=== PATIENT | male | born 1955 | race Caucasian/White ===

== ENCOUNTER 2020-08-16 07:50 | Outpatient (REF) | payer OTHER, SELFPAY ==
[2020-08-16 11:40] LABS: Hematocrit 45.8 % (42-52); Mean Corpuscular HGB Conc 32.8 g/dl (31.0-36.0); Mean Corpuscular Hemoglobin 28.4 pg (27.0-33.0); Mean Corpuscular Volume 86.7 fL (80-98); Mean Platelet Volume 9.2 fL (9.4-12.4); Platelet Count 222 X10*3/uL (160-400); Red Blood Count 5.28 X10*6/uL (4.60-5.80); Red Cell Distribution Width 12.8 % (11.0-16.0); White Blood Count 5.9 X10*3/uL (4.8-10.8)
[2020-08-16 12:11] LABS: Alanine Aminotransferase 26 U/L (0-40); Albumin Level 4.3 g/dL (3.5-5.0); Alkaline Phosphatase 51 U/L (39-117); Anion Gap 12 (12-20); Aspartate Amino Transferase 20 U/L (5-37); Bilirubin Total 0.8 mg/dL (0.0-1.0); Blood Urea Nitrogen 21 mg/dL (9-16); Calcium 8.9 mg/dL (8.4-10.2); Carbon Dioxide 29 mmol/L (22-29); Chloride 103 mmol/L (96-108); Cholesterol 170 mg/dL; Estimated Glomerular Filt Rate > 60; Glucose Fasting 95 mg/dL (60-99); HDL Cholesterol 65 mg/dL; LDL Cholesterol Calculated 88 mg/dl; Potassium 4.1 mmol/l (3.3-5.1); Sodium 140 mmol/L (135-145); Total Protein 7.2 g/dL (6.5-8.0); Triglycerides 85 mg/dL
[2020-08-16 12:14] LABS: Prostate Specific Antigen 0.19 ng/mL (<0.05-4.0); Vitamin D 25-OH Total 30.2 ng/mL (>30)
== END 2020-08-16 07:51 | disposition home or self-care (01) ==
LOC: HO.MANLDS 07:50
PROVIDERS: PCP Internal Medicine; Visit Provider Internal Medicine
DX: Z12.5 Encounter for screening for malignant neoplasm of prostate (principal); I10 Essential (primary) hypertension
CPT/HCPCS: 36415; 80053; 80061; 82306; 84153; 85027

== ENCOUNTER 2021-11-28 07:46 | Outpatient (REF) | payer OTHER, SELFPAY ==
[2021-11-28 11:12] LABS: Hematocrit 46.3 % (42.0-52.0); Hemoglobin 15.3 g/dl (14.0-18.0); Mean Corpuscular Hemoglobin 28.7 pg (27.0-33.0); Mean Corpuscular Volume 86.7 fL (80.0-98.0); Mean Platelet Volume 9.3 fL (9.4-12.4); Platelet Count 214 X10*3/uL (160-400); Red Blood Count 5.34 X10*6/uL (4.60-5.80); Red Cell Distribution Width 12.5 % (11.0-16.0); White Blood Count 6.8 X10*3/uL (4.8-10.8)
[2021-11-28 11:29] LABS: Alanine Aminotransferase 31 U/L (0-40); Albumin Level 4.4 g/dL (3.5-5.0); Alkaline Phosphatase 51 U/L (39-117); Anion Gap 12 (12-20); Aspartate Amino Transferase 22 U/L (5-37); Bilirubin Total 0.9 mg/dL (0.0-1.0); Blood Urea Nitrogen 23 mg/dL (9-16); Calcium 9.4 mg/dL (8.4-10.2); Carbon Dioxide 31 mmol/L (22-29); Chloride 103 mmol/L (96-108); Cholesterol 182 mg/dL; Estimated Glomerular Filt Rate > 60; Glucose Fasting 96 mg/dL (60-99); HDL Cholesterol 66 mg/dL; LDL Cholesterol Calculated 94 mg/dl; Potassium 4.3 mmol/L (3.3-5.1); Sodium 142 mmol/L (135-145); Total Protein 7.4 g/dL (6.5-8.0); Triglycerides 110 mg/dL
[2021-11-28 11:41] LABS: Prostate Specific Antigen 0.37 ng/mL (<0.05-4.0); Vitamin D 25-OH Total 39.1 ng/mL (>30)
== END 2021-11-28 07:47 | disposition home or self-care (01) ==
LOC: HO.MANLDS 07:46
PROVIDERS: PCP Internal Medicine; Visit Provider Internal Medicine
DX: Z12.5 Encounter for screening for malignant neoplasm of prostate (principal); I10 Essential (primary) hypertension
CPT/HCPCS: 36415; 80053; 80061; 82306; 84153; 85027

== ENCOUNTER 2022-03-10 14:52 | Outpatient (REF) | payer OTHER, SELFPAY ==
[2022-03-10 19:21] LABS: MANUAL DIFF FLAG NO
[2022-03-10 19:24] LABS: Basophils Percent Auto 0.6 % (0-2); Eosinophils Absolute Auto 0.1 X10*3/uL (0.0-0.4); Eosinophils Percent Auto 2.3 % (0-4); Hematocrit 41.2 % (42.0-52.0); Hemoglobin 13.3 g/dl (14.0-18.0); Imm Gran Abs Auto 0.01 X10*3/uL (0.00-0.03); Imm Gran Pct Auto 0.2 % (0.0-0.4); Lymphocytes Absolute Auto 2.3 X10*3/uL (1.2-4.9); Mean Corpuscular HGB Conc 32.3 g/dl (31.0-36.0); Mean Corpuscular Hemoglobin 28.7 pg (27.0-33.0); Mean Corpuscular Volume 88.8 fL (80.0-98.0); Mean Platelet Volume 9.6 fL (9.4-12.4); Monocytes Absolute Auto 0.7 X10*3/uL (0.1-1.2); Monocytes Percent Auto 13.8 % (2-11); Neutrophils Absolute Auto 2.1 x10*3/uL (2.0-8.3); Neutrophils Percent Auto 40.1 % (45-73); Platelet Count 211 X10*3/uL (160-400); Red Blood Count 4.64 X10*6/uL (4.60-5.80); Red Cell Distribution Width 13.3 % (11.0-16.0); White Blood Count 5.3 X10*3/uL (4.8-10.8)
[2022-03-10 19:35] LABS: Alanine Aminotransferase 26 U/L (0-40); Albumin Level 4.3 g/dL (3.5-5.0); Alkaline Phosphatase 45 U/L (39-117); Anion Gap 13 (12-20); Aspartate Amino Transferase 23 U/L (5-37); Bilirubin Total 0.8 mg/dL (0.0-1.0); Blood Urea Nitrogen 24 mg/dL (9-16); Calcium 9.3 mg/dL (8.4-10.2); Carbon Dioxide 29 mmol/L (22-29); Chloride 104 mmol/L (96-108); Estimated Glomerular Filt Rate > 60; Glucose Random 105 mg/dL (60-115); Potassium 4.7 mmol/L (3.3-5.1); Sodium 141 mmol/L (135-145); Total Protein 7.1 g/dL (6.5-8.0)
[2022-03-11 06:51] LABS: Estimated Average Glucose 108 mg/dL; Hemoglobin A1c % 5.4 %
[2022-03-13 08:15] LABS: ~HepC Num1 0.11 S/CO (0.00-0.79); ~Hepatitis C Antibody Nonreactive (Nonreactive)
== END 2022-03-10 14:53 | disposition home or self-care (01) ==
LOC: HO.MANLDS 14:52
PROVIDERS: Visit Provider Internal Medicine
DX: Z11.59 Encounter for screening for other viral diseases (principal); I10 Essential (primary) hypertension; R73.09 Other abnormal glucose
CPT/HCPCS: 36415; 80053; 83036; 85025; 86803

== ENCOUNTER 2023-01-26 07:34 | Outpatient (REF) | payer MEDICARE, SELFPAY ==
[2023-01-26 11:45] LABS: Estimated Average Glucose 114 mg/dL; Hemoglobin A1c % 5.6 %
[2023-01-26 12:12] LABS: Alanine Aminotransferase 41 U/L (0-40); Albumin Level 4.3 g/dL (3.5-5.0); Alkaline Phosphatase 44 U/L (39-117); Anion Gap 10 (12-20); Aspartate Amino Transferase 27 U/L (5-37); Bilirubin Total 1.1 mg/dL (0.0-1.0); Blood Urea Nitrogen 17 mg/dL (9-16); Calcium 9.2 mg/dL (8.4-10.2); Carbon Dioxide 29 mmol/L (22-29); Chloride 106 mmol/L (96-108); Cholesterol 177 mg/dL; Estimated Glomerular Filt Rate > 60; Glucose Random 91 mg/dL (60-115); HDL Cholesterol 68 mg/dL; LDL Cholesterol Calculated 92 mg/dl; Potassium 4.3 mmol/L (3.3-5.1); Sodium 141 mmol/L (135-145); Triglycerides 89 mg/dL
== END 2023-01-26 07:35 | disposition home or self-care (01) ==
LOC: HO.MANLDS 07:34
PROVIDERS: Visit Provider Internal Medicine
DX: Z12.5 Encounter for screening for malignant neoplasm of prostate (principal); N40.1 Benign prostatic hyperplasia with lower urinary tract symptoms; R73.9 Hyperglycemia, unspecified; E78.00 Pure hypercholesterolemia, unspecified
CPT/HCPCS: 36415; 80053; 80061; 83036; 84153

== ENCOUNTER 2024-02-01 07:54 | Outpatient (REF) | payer MEDICARE, SELFPAY ==
[2024-02-01 14:13] LABS: Alanine Aminotransferase 54 U/L (0-40); Albumin Level 4.2 g/dL (3.5-5.0); Alkaline Phosphatase 45 U/L (39-117); Anion Gap 15 (12-20); Aspartate Amino Transferase 30 U/L (5-37); Bilirubin Total 0.8 mg/dL (0.0-1.0); Blood Urea Nitrogen 13 mg/dL (9-16); Calcium 9.1 mg/dL (8.4-10.2); Carbon Dioxide 26 mmol/L (22-29); Chloride 106 mmol/L (96-108); Cholesterol 172 mg/dL (<200); Estimated Glomerular Filt Rate > 60; Glucose Random 91 mg/dL (60-115); HDL Cholesterol 72 mg/dL (>40); LDL Cholesterol Calculated 80 mg/dL (<100); Sodium 143 mmol/L (135-145); Total Protein 7.3 g/dL (6.5-8.0); Triglycerides 101 mg/dL (<150)
[2024-02-01 14:18] LABS: Vitamin D 25-OH Total 63.4 ng/mL (>30)
== END 2024-02-01 07:55 | disposition home or self-care (01) ==
LOC: HO.MANLDS 07:54
PROVIDERS: Visit Provider Internal Medicine
DX: Z12.5 Encounter for screening for malignant neoplasm of prostate (principal); E78.00 Pure hypercholesterolemia, unspecified; I10 Essential (primary) hypertension
CPT/HCPCS: 36415; 80053; 80061; 82306; 84153

== ENCOUNTER 2024-11-11 07:25 | Outpatient (REF) | payer MEDICARE, SELFPAY ==
--- OUTSIDE RECORDS SUMMARY | 2024-11-11 07:29 | XMS_ITS | Continuity of Care Document ---
Author Name [facility] Organization [facility] Care Team Providers Care Fermentation Manager Name Role Phone [facility] Unavailable Unavailable Immunizations Combined list of available immunizations from the Department of Defense and Veterans Affairs facilities. Immunization Series Date Given Administered By Site Reaction Lot Number CVX Code Drug Rig Site Engineer Status Comments Source COVID-19 (PFIZER), MRNA, LNP-S, PF, 30 MCG/0.3 ML DOSE 2 2020 208 complet ed PFR; [id number]; 1 [facility] COVID-19 (PFIZER), MRNA, LNP-S, PF, 30 MCG/0.3 ML DOSE 1 2020 208 complet ed PFR; [id number]; 1 [facility] Social History Combined list of available smoking, tobacco, and other social history from Department of Defense and Veterans Affairs facilities. Social History Type Response Date Comment Sourc e Tobacco smoking status NHIS NON-TOBACCO USER 09/05/2001 [facility]
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
[2024-11-11 13:29] LABS: MANUAL DIFF FLAG NO
[2024-11-11 13:38] LABS: Basophils Percent Auto 0.6 % (0-2); Eosinophils Absolute Auto 0.1 X10*3/uL (0.0-0.4); Eosinophils Percent Auto 1.6 % (0-4); Hematocrit 44.2 % (42.0-52.0); Hemoglobin 14.8 g/dl (14.0-18.0); Imm Gran Abs Auto 0.01 X10*3/uL (0.00-0.03); Imm Gran Pct Auto 0.2 % (0.0-0.4); Lymphocytes Absolute Auto 2.7 X10*3/uL (1.2-4.9); Lymphocytes Percent Auto 42.9 % (20-40); Mean Corpuscular HGB Conc 33.5 g/dl (31.0-36.0); Mean Corpuscular Hemoglobin 29.1 pg (27.0-33.0); Mean Corpuscular Volume 86.8 fL (80.0-98.0); Mean Platelet Volume 9.5 fL (9.4-12.4); Monocytes Absolute Auto 0.8 X10*3/uL (0.1-1.2); Monocytes Percent Auto 12.2 % (2-11); Neutrophils Absolute Auto 2.7 x10*3/uL (2.0-8.3); Neutrophils Percent Auto 42.5 % (45-73); Platelet Count 210 X10*3/uL (160-400); Red Blood Count 5.09 X10*6/uL (4.60-5.80); Red Cell Distribution Width 12.6 % (11.0-16.0); White Blood Count 6.3 X10*3/uL (4.8-10.8)
[2024-11-11 13:44] LABS: Estimated Average Glucose 120 mg/dL; Hemoglobin A1c % 5.8 % (<6.0)
[2024-11-11 14:12] LABS: Prostate Specific Antigen 0.24 ng/mL (<0.05-4.0)
[2024-11-11 14:16] LABS: Alanine Aminotransferase 60 U/L (0-40); Albumin Level 4.1 g/dL (3.5-5.0); Alkaline Phosphatase 55 U/L (39-117); Anion Gap 13 (12-20); Aspartate Amino Transferase 31 U/L (5-37); Bilirubin Total 0.9 mg/dL (0.0-1.0); Blood Urea Nitrogen 21 mg/dL (9-16); Carbon Dioxide 28 mmol/L (22-29); Chloride 107 mmol/L (96-108); Cholesterol 173 mg/dL (<200); Estimated Glomerular Filt Rate > 60; Glucose Random 89 mg/dL (60-115); HDL Cholesterol 62 mg/dL (>40); LDL Cholesterol Calculated 89 mg/dL (<100); Potassium 4.5 mmol/L (3.3-5.1); Sodium 143 mmol/L (135-145); Total Protein 7.3 g/dL (6.5-8.0); Triglycerides 113 mg/dL (<150)
== END 2024-11-11 07:26 | disposition home or self-care (01) ==
LOC: HO.MANLDS 07:25
PROVIDERS: Visit Provider Internal Medicine
DX: E78.00 Pure hypercholesterolemia, unspecified (principal); R73.9 Hyperglycemia, unspecified; Z12.5 Encounter for screening for malignant neoplasm of prostate
CPT/HCPCS: 36415; 80053; 80061; 83036; 84153; 85025

== ENCOUNTER 2025-09-02 09:23 | Outpatient (REF) | payer MEDICARE, OTHER, SELFPAY ==
--- OUTSIDE RECORDS SUMMARY | 2024-11-20 13:32 | XMS_ITS | Encounter Summary ---
Author Organization [facility] Address [address] [place] [address] Phone Care Team Providers Care Fire Battalion Chief Name Role Phone TaeSyed reyes Blanca ZAMARRIPA Primary Care Provider [phone] Encounter Details Date Type Department Care Team (Late st Contact Info) Description 11/20/2024 1:32 PM [facility] Hospital Encounter [facility] [address] [place] [address] Helen Perez FNP [address] [place] [address] [email or web address] Social History Tobacco Use Types Packs/Day Years Used Date Smoking Tobacco: Never Smokeless Tobacco: Never Alcohol Use Standard Drinks/Week Comments Not Currently 0 (1 standard drink = 0.6 oz pur e alcohol) Education Answer Date Recorded Are you interested in more education? Not on wilfredo e 01/12/2023 Are you concerned about learning? Not on file 01/12/2023 No 01/12/2023 No 01/12/2023 Digital Access Answer Date Recorded No 02/10/2023 No 02/10/2023 Reliable internet access at home? Not on file 02/10/2023 Device with a working camera? Not on file Sex and Gender Information Value Date Recorded Sex Assigned at Not on file Legal Sex Male 9:53 PM EDT Gender Identity Not on file Sexual Orientation Not on file documented as of this encounter Plan of Treatment Not on file documented as of this encounter Procedures Procedure Name Priority Date/Time Associated Diagnosis Comments XR WRIST 3 OR MORE VIEWS (LEFT) Urgent/patient waiting 11/20/2024 1:39 PM EST Fall, initial encounter documented in this encounter Results * XR WRIST 3 OR MORE VIEWS (LEFT) (11/20/2024 1:39 PM EST) Anatomical Region Laterality Modality Wrist Left Computed Radiogr aphy 11/20/2024 1:43 PM EST Impressions 11/20/2024 1:50 PM EST Comminuted impacted transverse extra-articular distal radius fracture. ATTESTATION: Leticia Bazan as teaching physician, have reviewed the images for this case and if necessary edited the report originally created by Emiliano Kamara. Narrative 11/20/2024 1:50 PM EST XR WRIST 3 OR MORE VIEWS (LEFT) Referring clinician's provided indication for this examination in Epic: Trauma; fall just captain room service COMPARISON: None FINDINGS: Acute comminuted transverse extra-articular distal radius fracture with dorsal angulation. Normal alignment. Normal joint spaces. Associated soft tissue swelling. Procedure Note Leticia López MD, PhD - 11/20/2024 XR WRIST 3 OR MORE VIEWS (LEFT) Referring clinician's provided indication for this examination in Epic:Trauma; fall just captain room service COMPARISON: None FINDINGS: Acute comminuted transverse extra-articular distal radius fracture withdorsal angulation. Normal alignment. Normal joint spaces. Associated softtissue swelling. IMPRESSION: Comminuted impacted transverse extra-articular distal radius fracture. ATTESTATION: Leticia Bazan as teaching physician, have reviewedthe images for this case and if necessary edited the report originallycreated by Emiliano Kamara. us Helen Perez CONTINUITY READER IMG XR UPPER EXTREMITY Destinee l Result documented in this encounter Visit Diagnoses Not on filedocumented in this encounter Care Teams Fire Battalion Chief Relationship Specialty Start Date End Date Syed Beck DO [address] [place] [address] [email or web address] PCP - General Internal Medicine 11/20/24 documented as of this encounter Additional Source Comments The information contained in this document represents components of the legal health record. It is not the complete legal health record.[facility]
--- OUTSIDE RECORDS SUMMARY | 2025-09-02 10:43 | XMS_ITS | Clinical Summary ---
Author Organization [facility] Address [address] [place] [address] Phone Care Team Providers Care Surgical Nurse Practitioner Name Role Phone Syed Beck Primary Care Provider [phone] Allergies Active Allergy Reactions Criticality Noted Date Comments Lisinopril Cough 11/20/2024 Medications omeprazole (PRILOSEC) 20 MG capsule omeprazole 20 mg capsule,delayed release Active amLODIPine (NORVASC) 10 MG tablet daily. Active simvastatin (ZOCOR) 20 MG tablet simvastatin 20 mg tablet Active Active Problems No known active problems Social History Tobacco Use Types Packs/Day Years Used Date Smoking Tobacco: Never Smokeless Tobacco: Never Tobacco Cessation:Counseling Given: Not Answered Alcohol Use Standard Drinks/Week Comments Not Currently [...] on file Sexual Orientation Not on file Last Filed Vital Signs Vital Sign Reading Time Taken Comments Blood Pressure 148/89 11/20/2024 1:24 PM EST Pulse 64 11/20/2024 1:24 PM EST Temperature 36.4 C (97.6 F) 11/20/2024 1:24 PM EST Respiratory Rate 16 11/20/2024 1:24 PM EST Oxygen Saturation 95% 11/20/2024 1:24 PM EST Inhaled Oxygen Concentration - - Weight 87.1 kg (192 lb) 11/23/2014 9:41 AM EDT Height 180.3 cm (5' 11 ) 11/23/2014 9:41 AM EDT Body Mass Index 26.78 11/23/2014 9:41 AM EDT Plan of Treatment Health Maintenance Due Date Last Done Comments Adult Td,Tdap Booster 1957 LIPID PANEL 1957 DEPRESSION SCREENING 1969 HEPATITIS C SCREENING 1975 COLONOSCOPY 2002 FIT TEST 2002 FOBT 2002 SIGMOIDOSCOPY 2002 VIRTUAL COLONOSCOPY 2002 PNEUMOCOCCAL VACCINES (50+ years) (1 of 1 - PCV) 2007 INFLUENZA VACCINE (#1) 2025 , 05/20/2017, 05/29/2016, Additional history exists COVID-19 VACCINE (2024- season) 2025 09/22/2021, 12/14/2020, 11/23/2020 COLOGUARD 01/03/2028 01/02/2025 COLORECTAL CANCER SCREENING 01/03/2028 RSV VACCINE (1 - 1-dose 75+ series) 2032 ZOSTER VACCINES Completed 08/20/2021, 100 01/2021, 05/29/2021, Additional history exists SMOKING STATUS SCREENING (Once After 26 Yrs) Completed 12/11/2024 HEPATITIS A VACCINES Aged Out No long er eligible based on patient's age to complete this topic HIB VACCINES Aged Out No longer eligi ble based on patient's age to complete this topic MENINGOCOCCAL VACCINES (ACWY) Aged Out No longer eligible based on patient's age to complete this topic MENINGOCOCCAL VACCINES (B) Aged Out N o longer eligible based on patient's age to complete this topic Medical Devices Not on file Insurance MEDICARE PART A & B [employer] MEDICARE SUPPLEMENT MEDICARE PART A & B [employer] MEDICARE SUPPLEMENT MEDICARE PART A & B [employer] MEDICARE SUPPLEMENT MEDICARE PART A & B [employer] MEDICARE SUPPLEMENT MEDICARE PART A & B [employer] MEDICARE SUPPLEMENT MEDICARE PART A & B [employer] MEDICARE SUPPLEMENT Care Teams Surgical Nurse Practitioner Relationship Specialty Start Date End Date Syed Beck DO [address] [place] [id number] [email or web address] PCP - General Internal Medicine 11/20/24 Additional Source Comments The information contained in this document represents components of the legal health record. It is not the complete legal health record.[facility]
--- OUTSIDE RECORDS SUMMARY | 2025-09-02 10:43 | XMS_ITS | Encounter Summary ---
Author Organization [facility] Address [address] [place] [address] Phone Care Team Providers Care Coal Yard Supervisor Name Role Phone Taeeric Syed Rios DO Primary Care Provider [phone] Syed Beck DO Primary Care Provider [phone] Encounter Details Date Type Department Care Team (Late st Contact Info) Description 02/16/2021 Ancillary Orders Virtual Department [address] [place] [address] Syed Beck DO [address] [facility] [address] [place] [address] [place] [address] Left shoulder pain, unspecified chronicity Social History Tobacco Use Types Packs/Day Years Used Date Smoking Tobacco: Never Assessed Sex and Gender Information Value Date Recorded Sex Assigned at Not on file Legal Sex Male 9:53 PM EDT Gender Identity Not on file Sexual Orientation Not on file documented as of this encounter Plan of Treatment Not on file documented as of this encounter Results * XR SHOULDER 2 VIEWS (LEFT) (02/18/2021 4:12 PM EDT) Anatomical Region Laterality Modality Shoulder Left Computed Radiogr aphy 02/18/2021 4:06 PM EDT Impressions 02/18/2021 6:46 PM EDT Findings suggestive of calcific tendinitis at the level of the greater tuberosity of the humerus.. Narrative 02/18/2021 6:46 PM EDT EXAM: XR SHOULDER (LEFT) COMPARISON: None FINDINGS: Anatomic alignment is maintained. No acute fractures. No significant degenerative changes. Minimal curvilinear calcification adjacent to the greater tuberosity of the humerus may reflect calcific tendinitis. Included portions of the lungs are clear. Procedure Note Sarath Whitfield MD - 02/18/2021 EXAM: XR SHOULDER (LEFT) COMPARISON: None FINDINGS: Anatomic alignment is maintained. No acute fractures. No significantdegenerative changes. Minimal curvilinear calcification adjacent to thegreater tuberosity of the humerus may reflect calcific tendinitis.Included portions of the lungs are clear. IMPRESSION: Findings suggestive of calcific tendinitis at the level of the greatertuberosity of the humerus.. Syed Beck DO IMG XR UPPER EXTREMITY Final Res ult documented in this encounter Visit Diagnoses Diagnosis Left shoulder pain, unspecified chronicity Left shoulder pain, unspecified chronicity documented in this encounter Care Teams Coal Yard Supervisor Relationship Specialty Start Date End Date Syed Beck DO PCP - General 09/20/17 11/19/24 Syed Beck DO [address] [place] [address] PCP - General Internal Medicine 11/20/24 documented as of this encounter Additional Source Comments The information contained in this document represents components of the legal health record. It is not the complete legal health record.[facility]
[2025-09-02 14:28] LABS: MANUAL DIFF FLAG NO
[2025-09-02 14:38] LABS: Hematocrit 44.3 % (42.0-52.0); Hemoglobin 14.7 g/dl (14.0-18.0); Imm Gran Abs Auto 0.02 X10*3/uL (0.00-0.03); Imm Gran Pct Auto 0.3 % (0.0-0.4); Lymphocytes Absolute Auto 2.2 X10*3/uL (1.2-4.9); Mean Corpuscular HGB Conc 33.2 g/dl (31.0-36.0); Mean Corpuscular Hemoglobin 28.7 pg (27.0-33.0); Mean Corpuscular Volume 86.4 fL (80.0-98.0); NRBC Abs Auto 0.000 X10*3/uL (0.0-0.012); NRBC Pct Auto 0.0 /100WBC (0.0-0.2); Platelet Count 226 X10*3/uL (160-400); Red Blood Count 5.13 X10*6/uL (4.60-5.80); White Blood Count 6.2 X10*3/uL (4.8-10.8)
[2025-09-02 14:49] LABS: Alanine Aminotransferase 37 U/L (0-40); Albumin Level 4.3 g/dL (3.5-5.0); Alkaline Phosphatase 50 U/L (39-117); Anion Gap 12 (12-20); Aspartate Amino Transferase 28 U/L (5-37); Blood Urea Nitrogen 18 mg/dL (9-16); Calcium 9.3 mg/dL (8.4-10.2); Carbon Dioxide 27 mmol/L (22-29); Chloride 106 mmol/L (96-108); Estimated Glomerular Filt Rate > 60; Potassium 3.7 mmol/L (3.3-5.1); Sodium 141 mmol/L (135-145); Total Protein 6.9 g/dL (6.5-8.0)
[2025-09-02 15:57] LABS: Prostate Specific Antigen 0.26 ng/mL (<0.05-4.0)
== END 2025-09-02 09:24 | disposition home or self-care (01) ==
LOC: HO.MANLDS 09:23
PROVIDERS: Visit Provider Internal Medicine
DX: Z12.5 Encounter for screening for malignant neoplasm of prostate (principal); I10 Essential (primary) hypertension; R73.9 Hyperglycemia, unspecified
CPT/HCPCS: 36415; 80053; 83036; 84153; 85025